=== PATIENT | female | born 1970 ===

== ENCOUNTER 2017-02-20 11:07 | Emergency (ER) | payer MEDICAID, OTHER ==
[2017-02-20 11:21] VITALS: BMI 35.4
[2017-02-20] MEDS ORDERED: Albuterol-Ipratrop 3 mg / 0.5 (3 ml) UD IH STA (11:22)
--- NOTE | 2017-02-20 11:25 | ED PDOC ---
HPI: CCC, URI, Sore Throat Time Seen by Provider: 02/20/17 11:15 History Per: Patient Onset/Duration Of Symptoms: Days (3) Current Symptoms Are (Timing): Still Present Associated Symptoms: Cough, Sputum. denies: Fever Severity: Mild Pain Scale Rating Of: 0 Additional Complaint(s): Cough productive green sputum assoc with SOB sand wheezing. Using mothers inhaler with no improvement. Denies fever. Past Medical History Vital Signs: Last Vital Signs Temp Pulse Resp BP Pulse Ox 98 02/20/17 11:10 - Medical History PMH: Anemia, Asthma, Diabetes - Surgical History Surgical History: Cholecystectomy - Family History Family History: States: Unknown Family Hx - Home Medications Home Medications: Ambulatory Orders Medication Instructions Recorded Sulfamethoxazole/Trimethoprim 1 tab PO Q12 #20 tab 10/20/14 [Bactrim DS 800 mg-160 mg] Sulfamethoxazole/Trimethoprim 1 tab PO BID #14 tab 05/24/16 [Bactrim DS 800 mg-160 mg] metFORMIN [glucOPHAGE] 500 mg PO BID #28 tab 05/24/16 traMADol [Ultram] 50 mg PO TID PRN #12 tab 05/24/16 Albuterol HFA [Ventolin HFA 90 2 puff IH Q4H #1 puff 02/20/17 mcg/actuation (8 g)] Azithromycin [Zithromax] 250 mg PO DAILY #6 tab 02/20/17 - Allergies Allergies/Adverse Reactions: Allergies Allergy/AdvReac Type Severity Reaction Status Date / Time No Known Allergies Allergy Verified 05/26/16 09:00 Review of Systems ROS Statement: Except As Marked, All Systems Reviewed And Found Negative Respiratory: Positive for: Cough, Shortness of Breath, Wheezing Physical Exam - Reviewed Nursing Documentation Reviewed: Yes Vital Signs Reviewed: Yes - Physical Exam Appears: Positive for: Non-toxic, No Acute Distress Head Exam: Positive for: ATRAUMATIC, NORMAL INSPECTION, NORMOCEPHALIC Skin: Positive for: Normal Color, Warm, DRY Eye Exam: Positive for: EOMI, Normal appearance, PERRL ENT: Positive for: Normal ENT Inspection Neck: Positive for: Normal, Painless ROM Cardiovascular/Chest: Positive for: Regular Rate, Rhythm Respiratory: Positive for: Rhonchi, Wheezing (Right side). Negative for: Accessory Muscle Use, Respiratory Distress Gastrointestinal/Abdominal: Positive for: Normal Exam, Bowel Sounds, Soft Back: Positive for: Normal Inspection Extremity: Positive for: Normal ROM Neurologic/Psych: Positive for: Alert, Oriented Disposition - Clinical Impression Clinical Impression: Bronchitis - Patient ED Disposition Is Patient to be Admitted: No Counseled Patient/Family Regarding: Studies Performed, Diagnosis, Need For Followup, Rx Given - Disposition Referrals: [facility] [Outside] Disposition: Routine/Home Disposition Time: 13:11 Condition: FAIR Prescriptions: Albuterol HFA [Ventolin HFA 90 mcg/actuation (8 g)] 2 puff IH Q4H #1 puff Azithromycin [Zithromax] 250 mg PO DAILY #6 tab Instructions: Acute Bronchitis (ED), Bronchospasm (ED)
[2017-02-20] MEDS ORDERED: Albuterol-Ipratrop 3 mg / 0.5 (3 ml) UD ONE (11:29)
--- NOTE | 2017-02-20 12:49 | RAD ---
HISTORY: cough COMPARISON: No prior. TECHNIQUE: Chest PA and lateral FINDINGS: LUNGS: The lungs are well inflated and clear. PLEURA: No significant pleural effusion identified. No pneumothorax apparent. CARDIOVASCULAR: Normal. OSSEOUS STRUCTURES: Within normal limits for the patient's age. VISUALIZED UPPER ABDOMEN: Normal. OTHER FINDINGS: None. IMPRESSION: No active pulmonary disease.
[2017-02-20 13:46] VITALS: RESP 18; O2SAT 99
== END 2017-02-20 13:30 | disposition home or self-care (01) ==
LOC: H.ER 11:07
DX: J40 Bronchitis, not specified as acute or chronic (principal); F17.210 Nicotine dependence, cigarettes, uncomplicated